=== PATIENT | male | born 1950 | race Caucasian/White ===

== ENCOUNTER → 2016-11-21 | Day surgery (SDC) | payer OTHER ==
[~2016-11-21] VITALS: Ht 172.7 cm; Wt 83.5 kg
[2016-11-21] VITALS (11 sets, daily range): BP systolic 133–161; BP diastolic 71–88; PULSE 63–97; RESP 11–18; O2SAT 95–100
[~2016-11-21] MED LIST: ALBU18HF INH; ALBU8.5H2 INHALATION; CeFAZolin 2 Gm/50 mL D5W IV Premix IV ONE; Dexamethasone 4 mg/mL Inj IVPUSH PRN; Dexamethasone 4 mg/mL Inj ONE; EPHEDrine Sulfate 50 mg/mL Inj IVPUSH PRN; FENO160T14 PO; FLUT16SP NS; GABA-504 PO; HYDROmorphone 1 mg/mL Inj IVPUSH PRN; Ketamine 10 mg/mL 20 mL Inj ONE; LISI-571 PO; Lactated Ringer's 1,000 ML IV ONE; Lactated Ringer's 1,000 ML IV SCH; Lactated Ringer's 500 ML IV PRN; MULT-1018 PO; MetoCLOpramide 5 mg/mL 2 mL Inj IVPUSH PRN; NPR500T PO; Ondansetron 2 mg/mL 2 mL Inj IVPUSH PRN; Ondansetron 2 mg/mL 2 mL Inj ONE; Phenylephrine 10,000 mCg/mL Inj IVPUSH PRN; Propofol 10,000 mCg/mL 20 mL Inj ONE; QUE9 PO; SIMV10TA4 PO; TAMS0.4C98 PO; ZOLP10TA5 PO; fentaNYL-PF 50 mCg/mL 2 mL Inj IVPUSH PRN; fentaNYL-PF 50 mCg/mL 2 mL Inj ONE
--- NOTE | 2016-11-21 09:55 | PCM.HPANE ---
Patient Data Surgeon Admitting Provider: Attending Provider:Linda Nelson MD Primary Care Physician:Zulma Madden MD Other Provider:[facility] Reason for Visit Left Kidney Stone Ht/WT & BMI Height (Feet): 5 Height (Inches): 8.00 Weight (Kilograms): 83.5 Body Mass Index 27.00 Allergies Coded Allergies: Sulfa (Sulfonamide Antibiotics) (Verified Allergy, Unknown, rash, 11/11/16) Uncoded Allergies: BANDAGE ADHESIVE (Allergy, Unknown, reddened, 11/11/16) Past Anesthesia History Anesthesia History: Denies:: Abnormal Airway, Anesthesia Reactions, Difficult Intubation, Fam Anesthesia Reaction Diabetes History Hx Diabetes?: No MRSA MRSA: No Medications Hypertension Medication: Yes Home Meds Incl Beta Kushal: No Reported Medications Zolpidem 10 Mg Tablet5 Mg PO HS PRN For Insomnia Ref 0 11/11/16 Albuterol Sulfate (Ventolin HFA Inhaler)200 Puff/18 Gm Inhaler2 Puff INH Q4 PRN For Wheezing #1 INHALER Ref 0 11/11/16 Tamsulosin (Flomax)0.4 Mg Capsule0.4 Mg PO DAILY Ref 0 11/11/16 Simvastatin 10 Mg [id number] Mg PO HS Ref 0 11/11/16 Albuterol HFA (Proair HFA)8.5 Gm Hfa.aer.ad2 Puffs INHALATION Q4H PRN For Shortness of Breath #1 INHALER 11/11/16 Naproxen 500 Mg [id number] Mg PO BID PRN For Pain Ref 0 11/11/16 Multivitamin (Multi Vitamin Daily)1 Each Tablet1 Each PO DAILY 30 Days Ref 0 11/11/16 Lisinopril 5 Mg Tablet5 Mg PO BID #60 TABLET Ref 0 11/11/16 Gabapentin 400 Mg [id number] Mg PO TID Ref 0 11/11/16 Fluticasone Propionate (Fluticasone Propionate Nasal)16 Gm Stout.susp2 Stout NS BID PRN For Congestion #16 GM Ref 0 11/11/16 Fenofibrate 160 Mg [id number] Mg PO DAILY Ref 0 11/11/16 Cholestyramine (Cholestyramine Packet)4 Gm Packet4 Gm PO DAILY Ref 0 11/11/16 History History of ENT Problems?: No HEENT History: Positive for:: Cataracts (cata surgery) Denies:: Abnormal Airway Difficult Intubation Dysphagia Glaucoma Hearing Problem Sinus Problem TMJ Denture Type: None Teeth Condition: Within Normal Limits Hx of Heart Problems?: Yes Cardiovascular History: Positive for:: Hypertension Denies:: AICD Abdominal Aortic Aneurism Atrial Fibrillation Heart Murmur Irregular Heartbeat Pacemaker Peripheral Vascular Hx of Respiratory Problem?: Yes Respiratory History: Positive for:: Asthma (allergies related ) Use of Inhalers / NEBS Denies:: COPD Chest Surgery Dyspnea Emphysema Hemoptysis Oxygen Administration Pneumonia (remote hx ) Tuberculosis Use of C-PAP Machine Hx Neurologic Problems?: Yes Neurological History: Denies:: Alzheimer's Disease CVA Dizziness Headaches Multiple Sclerosis Parkinson's Disease Seizures TIA Other Neurological Pertinent: peripheral neuropathy- feet and legs Hx of GI Problems?: Yes Hx of Problems?: Yes Genitourinary History: Positive for:: Kidney Stones (left stone current admission problem) Denies:: Urinary Tract Infection Male Hx: Denies:: Prostate Problems Scrotal Mass Testicular Surgery Skin History: Denies:: History Skin Disorders? Pressure Ulcers Hx Musculoskeletal Problems?: No Musculoskeletal History: Denies:: Back Injury Fibromyalgia Joint Replacement Musculoskeletal Trauma Myasthenia Gravis Osteoarthritis Systemic Lupus Hx of Psycho/Social Problems?: No Psycho Social History: Denies:: Anxiety Hx Depression Hx Surgeries?: Yes (eligio, appe, cataracts) Hx Any Other Health Problems?: Yes Other History: Denies:: Cancer Hospitalization Thyroid Disease History Blood Transfusions: Positive for:: Accept Blood Products? Denies:: Blood Transfuse Reaction Blood Transfusions Hx Diabetes: No Hx Alcohol Use: YesAlcoholic Drinks Per Day: rarely- one to two drinks yearly Hx Substance Use: NoHave You Smoked inLast 12 mo: No Stop/Bang S-Snoring: Do You Snore Loudly: No T-Tired: feel tired, fatigued: Yes O-Obsered: Observed not breath: No P-Blood Pressure: treated: Yes B- Body Mass Index > 35 kg/m2: No A- Age over 50: Yes N- Neck Large Circumference: No G- Gender Male: Yes FERNY Total Score: 4 Risk Assessment Category Category 1A: Patient has history of documented sleep apnea, and HAS NOT received any narcotic, sedative or anesthesia administration during this stay. Category 1B: Patient has history of documented sleep apnea, and HAS received any narcotic , sedative or anesthesia administration during this stay Category 2: Patient has SUSPECTED Obstructive Sleep Apnea, and HAS received any narcotic , sedative or anesthesia administration during this stay. Category 3: Patient has SUSPECTED Obstructive Sleep Apnea and HAS NOT received narcotic, sedative or anesthesia administration during this stay. Category 4: Outpatient in Procedural Areas with known sleep apnea or who screen positive for High Risk via the STOP/BANG questionnaire. Exam Exam Vital Signs Vital Signs Date Time Temp Pulse Resp B/P Pulse Ox O2 Delivery O2 Flow Rate FiO2 11/21/16 09:18 36.3 66 14 161/81 96 Room Air General Appearance: Alert, Oriented X3, Cooperative, No Acute Distress HEENT/AIRWAY: MP 1 Lungs: Clear to Auscultation Heart: Regular Rate/Rhythm Meds/Labs/Diagnostics Admission Meds Current Medications Lactated Ringer's (Lr) 1,000 ml @ ud STK-MED ONCE IV Last administered on 11/21t 09:40; Start 11/21/16 at 09:40; Stop 11/21/16 at 09:41; Status DC Plan Impression Patient chart reviewed, patient interviewed and anesthestic plan with risks, benefits, and alternatives discussed, and informed consent obtained. NPO per Anesth. Guidelines: Yes ASA Physical Status: ASA2 Mod Systemic Disease Anesthetic Plan: GA Bene/Risks/Altern/Consents: Yes HP Complete Prior to Induction: Yes Bakari العراقي MD Nov 21, 2016 09:55
[2016-11-21] MEDS: HYDROcodone-APAP 5-325 mg Tablet PO PRN ×2 (12:00→13:00)
--- NOTE | 2016-11-21 12:00 | PCM.ANEP1 ---
Post Anesthesia PACU Phase 1 Assessment Vital Signs Vital Signs Date Time Temp Pulse Resp B/P Pulse Ox O2 Delivery O2 Flow Rate FiO2 11/21/16 11:40 97 16 147/88 97 Room Air 11/21/16 11:30 37.2 65 12 133/76 97 Room Air 11/21/16 11:25 67 11 137/71 97 Room Air 11/21/16 11:20 36.2 68 13 144/73 97 Room Air 11/21/16 11:15 73 17 148/78 95 Room Air 11/21/16 11:10 63 11 145/85 97 Room Air 11/21/16 11:05 71 12 160/77 100 Room Air 11/21/16 11:00 37.0 72 18 158/78 99 Simple Mask 8 11/21/16 09:18 36.3 66 14 161/81 96 Room Air Anesthetic Administered: GA Level of Alertness: Awake, talking Pain: No Nausea or Vomiting: No CV Function & Hydration Stable: Yes Airway Device: None Oxygen Delivery: Room Air Lungs: Clear to Auscultation PACU Phase 2 Assessment Complications: No Follow up Care: N/A Patient Instructions Provided: N/A Bakari العراقي MD Nov 21, 2016 12:00
--- NOTE | 2016-11-21 12:05 | OP ---
[address] [address] OPERATIVE REPORT PATIENT: ANALIA THOMAS : 1950 MR#: [id number] ADMIT: 11/21/2016 JOB ID: [id number] DATE OF SURGERY: 11/21/2016 PREOPERATIVE DIAGNOSIS(ES): Left ureteral stone. POSTOPERATIVE DIAGNOSIS(ES): 1. Left ureteral stone. 2. Urethral stricture. SURGEON: Linda Nelson MD COAL OR ORE CONTROLLER: None. FINDINGS: 1. Bulbar urethral stricture approximately 16-Venezuelan. 2. Left proximal ureteral stone, approximately 8 mm. ANESTHESIA: General. ESTIMATED BLOOD LOSS: 2 mL. DRAINS: 6 x 26 left double-J ureteral stent. SPECIMENS: Left ureteral stone. COMPLICATIONS: None. CONDITION: Stable. INDICATION FOR PROCEDURE: The patient is a 66-year-old gentleman with a history of a left ureteral stone. He now presents for ureteroscopy. DESCRIPTION OF PROCEDURE: After informed consent was obtained, the patient was taken to the operating room. A time-out was performed identifying correct patient, surgical site, and procedure. General anesthesia was then induced. He was given intravenous antibiotics just prior to the start of the procedure. He was placed in the lithotomy position and all pressure points were identified and appropriately padded. His genitals were then prepped and draped in a sterile fashion. His urethral meatus was seen to be just a bit inadequate to accommodate the 22-Venezuelan cystoscope. It was dilated just at the meatus with Wilkinson sounds. This proceeded without difficulty and without any bleeding. The cystoscope was then placed into the urethra and advanced into the bulbar urethra where it was seen he had a bulbar urethral stricture. Photos were taken of the stricture and will be saved to the patient's chart. The stricture was approximately 16-Venezuelan and somewhat dense. A Sensor tip wire was used to cannulate this and advanced into the bladder under direct vision. S dilators were used to dilate to the stricture. The cystoscope was then replaced and it could be seen that the stricture had been nicely dilated. The Sensor tip wire was then removed and a Pollack catheter was used to cannulate the left ureteral orifice. A retrograde pyelogram was performed. There was a filling defect of the proximal ureter. Two Sensor tip wires were then navigated to the renal pelvis in succession under fluoroscopy. A 12-14 access sheath, 28 cm long was used over one of the wires to navigate to the mid ureter. Flexible ureteroscopy then commenced. There was seen a stone in the proximal ureter. It was quite porous. A 273 micron laser fiber wire was used to break the stone into small pieces. A tipless basket was then used to remove some of the stone fragments and this was sent off to pathology for analysis. The remaining ureter and kidney was subsequently inspected. Every calyx was inspected. There were no stones though perhaps very mild Bao plaques. The portion of the ureter where the stone had been was inspected. The stone was fairly embedded there. The ureter was otherwise normal. The ureteroscope was then brought down to the level of the access sheath and both were brought down in tandem. The remaining ureter appeared normal under direct vision. The remaining Sensor tip wire was then backloaded in the cystoscope and a 6 x 26 left double-J ureteral stent was loaded over one of the wires and advanced to the renal pelvis as seen under fluoroscopy. The wire was then removed leaving a nice coil in the patient's bladder as seen under direct vision. The bladder was then drained. The patient was then reversed from general anesthesia and taken to PACU in good and stable condition. ARELI
--- NOTE | 2016-11-21 14:45 | DRSVH ---
PROCEDURE: X-RAY RETROGRADE UROGRAPHY INDICATIONS: C-ARM ASSISTED STENT PLACEMENT, STONE REMOVAL TECHNIQUE: 2 intra-operative images acquired by the Urology service. COMPARISON: Outside Film, CT, CT ABD PELVIS WO CON, 10/26/2016, 6:05. [facility], CR, X R ABD AP 1VW, 10/28/2016, 9:31. FINDINGS: Exam is limited to to submitted images. Within these limits, there is mild left hydroneph rosis present and intraluminal filling defects are seen. Visualized portions of the proximal right u reter appear normal. No extravasation of contrast media. Ureteral stent placed. IMPRESSION: 1. Mild left hydronephrosis. 2. Ureteral stent placement. Dictated by: Yamil EARL Interpreted: Ceferino Cummins MD on 11/21/2016 at 14:28 Approved by: Ceferino Cummins M.D. on 11/21/2016 at 14:42
[2016-11-24 14:10] LABS: Stone Color Brown (.)
== END | disposition home or self-care (01) ==
LOC: SAS 08:55
PROVIDERS: ATTEND Urology
DX: N20.1 Calculus of ureter (principal); N35.9 Urethral stricture, unspecified; I10 Essential (primary) hypertension; E78.2 Mixed hyperlipidemia; G60.9 Hereditary and idiopathic neuropathy, unspecified; J45.909 Unspecified asthma, uncomplicated; Z87.891 Personal history of nicotine dependence
CPT/HCPCS: 52332; 52352; 74420; 82360; C2617; J0690; J1100; J2405; J2704; J3010; J7120; Q9967